=== PATIENT | male | born 1970 | race Caucasian/White ===

== ENCOUNTER 2020-11-12 16:43 | Emergency (ER) | payer SELFPAY ==
[~2020-11-12] VITALS: Ht 170.2 cm; Wt 77.1 kg
[2020-11-12 19:16] VITALS: Ht 170.2 cm; Wt 77.1 kg
[2020-11-12 20:45] VITALS: BP 133/78
== END 2020-11-12 20:45 | disposition home or self-care (01) ==
LOC: ED 16:43
DX: J40 Bronchitis, not specified as acute or chronic (principal); Z98.890 Other specified postprocedural states